=== PATIENT | female | born 1935 | race Caucasian/White ===

== ENCOUNTER → 2016-05-18 | Outpatient (CLI) | payer OTHER, MEDICARE | LOC: BHFA 11:00 | PROVIDERS: ATTEND Internal Medicine Cardiovascular Disease | DX: R06.2 Wheezing (principal) ==

== ENCOUNTER → 2016-07-25 | Outpatient (CLI) | payer OTHER, MEDICARE | LOC: BMCIMAGING 12:30 | PROVIDERS: ATTEND Family Medicine | DX: R05 Cough (principal); R06.02 Shortness of breath ==

== ENCOUNTER → 2016-09-05 | Outpatient (CLI) | payer OTHER, MEDICARE | LOC: BMCIMAGING 14:36 | PROVIDERS: ATTEND Internal Medicine | DX: J18.1 Lobar pneumonia, unspecified organism (principal); E03.9 Hypothyroidism, unspecified | CPT/HCPCS: 84481-90 ==

== ENCOUNTER → 2017-03-03 | Outpatient (CLI) | payer OTHER, MEDICARE | LOC: FIMAGING 09:26 | PROVIDERS: ATTEND Internal Medicine Hematology & Oncology | DX: Z12.31 Encounter for screening mammogram for malignant neoplasm of breast (principal); Z80.3 Family history of malignant neoplasm of breast | CPT/HCPCS: G0202 ==

== ENCOUNTER → 2017-10-03 | Outpatient (CLI) | payer OTHER, MEDICARE | LOC: BHFA 13:15 | PROVIDERS: ATTEND Internal Medicine Interventional Cardiology | DX: I27.20 Pulmonary hypertension, unspecified (principal) ==

== ENCOUNTER → 2017-10-19 | Outpatient (CLI) | payer OTHER, MEDICARE | LOC: BHFA 09:00 | PROVIDERS: ATTEND Internal Medicine Interventional Cardiology | DX: I27.20 Pulmonary hypertension, unspecified (principal); E78.5 Hyperlipidemia, unspecified ==

== ENCOUNTER → 2018-03-05 | Outpatient (CLI) | payer OTHER, MEDICARE | LOC: FIMAGING 10:58 | PROVIDERS: ATTEND Internal Medicine Hematology & Oncology | DX: Z12.31 Encounter for screening mammogram for malignant neoplasm of breast (principal); Z85.3 Personal history of malignant neoplasm of breast ==

== ENCOUNTER 2018-08-07 13:39 | Inpatient (IN) | payer OTHER, MEDICARE ==
[2018-08-07] MEDS ORDERED: ONDANSETRON 4 MG/2 ML VIAL IVP PRN (14:29)
[2018-08-07] MEDS ORDERED: ONDANSETRON DISINTEGRATING 4 MG TAB PO PRN (14:29)
[2018-08-07] MEDS ORDERED: ACETAMINOPHEN 325 MG TAB PO PRN (14:29)
[2018-08-07 15:09] LABS: PLATELET COUNT 148 10^3/uL (150-400)
[2018-08-07] MEDS ORDERED: NITROFURANTOIN MACROBID 100 MG CAP PO PRN (15:29)
--- NOTE | 2018-08-07 17:16 | ECHO ---
[email or web address] [address] [address] Main: [phone] Echocardiography Examination Transthoracic Name: OXANA CARLTON MR#: [id number] Study Date: 08/07/2018 Study Time: 03:47 PM Date of : 1935 Age: 82 year(s) Height: 162.6 cm (64 in.) Weight: 106.6 kg (235 lb.) BSA: 2.1 m2 Gender: Female Examination: Echo Contrast: Image Quality: Adequate Rhythm: Heart Rate: BP: / Indication: Assess MR Procedure Staff Referring Physician: Polo Coach: Esther Moore RDCS Reading Physician: Modesto Shepard MD Requesting Provider: Ordering Physician: Horacio Brewer MD Indication: Assess MR Measurements Chambers AV/MV Label Value Normal Value Label Value Normal Value LVOTd 1.9 cm (1.8cm - 2cm) AV PGmean 8 mmHg LVDd, 2D 4.7 cm (3.9cm - 5.3cm) AV Vmax 1.93 m/s LVDs, 2D 2.9 cm (2.1cm - 4cm) CRISTIAN (VTI) 1.5 cm2 IVSd, 2D 1.3 cm (0.6cm - 1.1cm) MV E Vmax 1.31 m/s LVPWd, 2D 1.3 cm MV A Vmax 0.85 m/s LVEF, 2D 68 % (54% - 74%) MV E/A 1.54 LVOT PGmean 2 mmHg MV E/E' lateral 20.7 LVOT Vmean 0.6 m/s MV E/E' septal 22.8 (0.45 - 1.25) EF lower range (%) 65 % MV E' septal 0.06 m/s EF upper range (%) 70 % MV VTI 40.7 cm LA Volume, BP 60 ml (22ml - 52ml) MVA D (continuity eq.) 1.8 cm2 LADs, 2D 4 cm (2.7cm - 3.8cm) MV PGmax 12 mmHg LAESV index, BP 28.6 ml/m2 MV PGmean 3 mmHg Additional Vessels MV My 3.2 cm Label Value Normal Value MR Vena Contracta 0.5 cm AoAsc 3.2 cm MR Reg. Volume 67 ml MR Reg. Fraction 20 % MR Vmax 5.41 m/s MR VTI 215 cm Patient: OXANA CARLTON Study Date: 08/07/2018 Page 1 of 3 03:47 PM MR (ERO) 0.31 cm2 MV E' lateral 0.06 m/s MR PISA Radius 0.9 cm MV E/E' mean 21.83 MR PISA Alias V. 32.9 cm/s MV E' mean 0.06 m/s TV/PV Label Value Normal Value RA Pressure 10 mmHg RVSP 68 mmHg TR Pmax 58 mmHg TR Vmax 3.81 m/s Conclusions (1) Left ventricular systolic ejection fraction was normal (65-70%) - mild LVH was noted (2) Bordeline RV dilation with normal systolic function (3) Mild biatrial dilation (4) Moderate MR with mild MAC. Regurgitant jet was posteriorly directed (5) Trileaflet aortic valve with mild/mod sclerosis, but no stenosis, and no insufficiency (6) Severe TR - RVSP was 65-70 mm Hg (7) Ascending aorta was 3.2 cm (8) No pericardial effusion (9) In comparison to prior echo from 10-03-17, increase in RVSP has been noted and similar mitral, aortic, and tricuspid valve pathology noted. Overall Conclusions: Exam done with pt flat (severe lipidemia in legs) Findings Left Ventricle: Diastolic dysfunction is present.. Left ventricle is normal in size. Normal global systolic left ventricular function. EF range is estimated at 65 % - 70 %. There is mild concentric left ventricular hypertrophy. There are no regional wall motion abnormalities. IVS: The septum is intact. Right Ventricle: Upper normal size right ventricle. Right ventricular wall thickness is normal. Right ventricular systolic function is normal. Left Atrium: The left atrium is mildly dilated. IAS: Normal appearing atrial septum. Right Atrium: The right atrium is mildly dilated. Mitral Valve: Moderate mitral regurgitation with a posteriorly directed jet.. No mitral valve stenosis. There is mild mitral annular calcification. Aortic Valve: No aortic valve regurgitation. Aortic leaflets exhibit mild to moderate calcification. The aortic valve is trileaflet. Tricuspid Valve: Patient: OXANA CARLTON Study Date: 08/07/2018 Page 2 of 3 03:47 PM Tricuspid valve leaflets are normal in appearance and function. Severe tricuspid regurgitation. No tricuspid valve stenosis. Right Ventricular systolic pressure is measured at 68 mmHg. Pulmonary artery pressure normal. Pulmonic Valve: Pulmonic leaflets exhibit normal cuspal separation. Mild pulmonic valve regurgitation is present. There is no pulmonic valve stenosis. Aorta: The aorta is normal. The ascending aorta measures 3.2 cm. Pericardium: No pericardial effusion. No pleural effusion present. Exam Details Procedure Ordered: Echo Procedure Status: Routine study Image Quality: Adequate Facility Location: Cardiac Echo 1 (No Signature Object) Patient: OXANA CARLTON Study Date: 08/07/2018 Page 3 of 3 03:47 PM [id number]
[2018-08-07] MEDS: CARVEDILOL 25 MG TAB PO SCH (17:21)
[2018-08-07] MEDS: FUROSEMIDE 40 MG/4 ML VIAL IVP SCH (17:21)
[2018-08-07] MEDS: ENOXAPARIN 30 MG/0.3 ML SYR SC SCH (20:22)
[2018-08-08] MEDS: FUROSEMIDE 40 MG/4 ML VIAL IVP SCH ×5 (06:19→23:47)
[2018-08-08] MEDS: LEVOTHYROXINE 125 MCG TAB PO SCH (06:19)
--- NOTE | 2018-08-08 09:08 | CPEKG ---
Test Reason : OPEN Blood Pressure : / mmHG Vent. Rate : 064 BPM Atrial Rate : 064 BPM P-R Int : 209 ms QRS Dur : 150 ms QT Int : 461 ms P-R-T Axes : 085 -77 019 degrees QTc Int : 476 ms Sinus rhythm RBBB and LAFB Probable left ventricular hypertrophy Confirmed by Alin Hoover ([id number]) on 08/08/2018 9:07:38 AM Referred By: BLAYNE HAN Confirmed By:Alin Hoover
[2018-08-08] MEDS: CARVEDILOL 25 MG TAB PO SCH ×2 (09:25→17:59)
[2018-08-08] MEDS: ANASTROZOLE 1 MG TAB PO SCH (09:27)
[2018-08-08] MEDS: POTASSIUM CL 20 MEQ TAB PO SCH (09:27)
[2018-08-08] MEDS: ALLOPURINOL 100 MG TAB PO SCH (09:27)
[2018-08-08] MEDS: ENOXAPARIN 30 MG/0.3 ML SYR SC SCH (09:28)
[2018-08-08] MEDS ORDERED: POLYETHYLENE GLYCOL 3350 17 GM PKT PO PRN (10:05)
[2018-08-08] MEDS ORDERED: PROTOCOL MAGNESIUM 1 DOSE IV PRN (10:24)
[2018-08-08] MEDS ORDERED: CARVEDILOL 25 MG TAB PO ONE (10:30)
[2018-08-08] MEDS ORDERED: MAGNESIUM SULF 1 GM/DEXTROSE 100 ML IV ONE (10:35)
--- NOTE | 2018-08-08 14:01 | ASMTCMCOM ---
CM Note CM Note Notes: Pts case discussed w/ RORY Nuñez. Pt is a 82 y/o man female admitted for CHF and pulmonary HTN. OT has cleared pt to d/c home with family. PT is still pending. Needs are TBD at this time. CM to follow. Plan: TBD Date Signed: 08/08/2018 02:00 PM Electronically Signed By:BOBBY Amaral
--- NOTE | 2018-08-08 16:08 | PDCARPN ---
Cardiology Progress Note Chief Complaint: Short of breath Assessment/Plan: Assessment: Polly Verde is a 82 y/o female with history of CHF and was evaluated in clinic by Dr Brewer determining she was fluid overloaded, and not responding well to oral diuretics. Recommendation for hospitalization for IV diuresis. She has tolerated it well and feels better today. She is easily SOB, but better with oxygen in place. Her legs were 3+ pitting edema on admit, today improved. She slept better last night. Today up in her room, and sitting in chair with legs elevated. Plan: Plan for continued IV diuresis today. Continue with I & O. Consider switching to oral Lasix tomorrow. She generally is feeling better today. 08/08/18 16:02 Subjective: My legs are not as tight and swollen today. I am breathing easier. Reviewed/Discussed With: family, multidisciplinary team Time Spent with Patient: greater than 25 minutes Time Spent with Patient: Greater than 25 minutes spent on this patients care, greater than 50% of time spent counseling, educating, and coordinating care regarding the above mentioned plan. Objective: Vital Signs (8 Hrs) Temp Pulse Pulse Resp BP BP BP 08/08/18 15:24 36.3 C 57 L 60 12 143/67 H 153/83 H 155/69 H 08/08/18 11:46 36.3 C 55 L 16 124/69 H 08/08/18 09:25 60 150/72 H Pulse Ox 08/08/18 15:24 96 08/08/18 11:46 94 08/08/18 09:25 Intake/Output (24 Hrs) 08/07/18 08/08/18 08/09/18 05:59 05:59 05:59 Intake Total 400 Output Total 4150 1500 Balance -3750 -1500 Intake: Oral (ml) 400 Output: Urine (ml) 4150 1500 Bedside Commode 1750 Toilet 2400 1500 Other: Weight 115.9 kg Number of Voids Bedside Commode 1 Toilet 4 3 Number of Stools Toilet 1 Result Diagrams: 08/07/18 14:45 08/08/18 04:18 - Physical Exam Constitutional: no apparent distress Cardiovascular: regular rate and rhythm, no murmurs, no rubs, no gallops Peripheral Pulses: 1+: dorsalis-pedis (R), dorsalis-pedis (L) Respiratory: no crackles, no wheezes Skin: warm, erythema, other (Edema) Neurologic: AAOx3 Psychiatric: cooperative, interactive ICD10 Worksheet Patient Problems: Problems Problem Status Onset Pulmonary arterial hypertension Acute CHF with left ventricular diastolic dysfunction, NYHA class 1 Acute
[2018-08-08] MEDS: SENNOSIDES/DOCUSATE SODIUM TAB PO SCH (21:19)
[2018-08-08] MEDS: ENOXAPARIN 40 MG/0.4 ML SYR SC SCH (21:19)
[2018-08-08] MEDS: ATORVASTATIN CALCIUM 10 MG TAB PO SCH (21:19)
[2018-08-09] MEDS: LEVOTHYROXINE 125 MCG TAB PO SCH (05:53)
[2018-08-09] MEDS: FUROSEMIDE 40 MG/4 ML VIAL IVP SCH ×3 (05:53→18:40)
[2018-08-09] MEDS ORDERED: MAGNESIUM SULF 1 GM/DEXTROSE 100 ML IV ONE (07:20)
[2018-08-09] MEDS: ANASTROZOLE 1 MG TAB PO SCH (08:13)
[2018-08-09] MEDS: ALLOPURINOL 100 MG TAB PO SCH (08:13)
[2018-08-09] MEDS: POTASSIUM CL 20 MEQ TAB PO SCH (08:14)
[2018-08-09] MEDS: ENOXAPARIN 40 MG/0.4 ML SYR SC SCH ×2 (08:17→21:05)
[2018-08-09] MEDS: SENNOSIDES/DOCUSATE SODIUM TAB PO SCH ×2 (08:28→21:05)
--- NOTE | 2018-08-09 09:21 | PDMN ---
Medical Necessity Medical necessity: Change to IP, as of 08/08/18, per MD & MCG M-190; los >2 mn for ongoing management of CHF exacerbation w/dyspnea (requiring 3L O2 to maintain sats >90%); requiring further monitoring & IV diuresis
[2018-08-09] MEDS: CARVEDILOL 25 MG TAB PO SCH ×3 (10:15→18:40)
--- NOTE | 2018-08-09 12:32 | PDCARPN ---
Cardiology Progress Note Assessment/Plan: Assessment: Polly Verde is a 82 y/o female with history of CHF and was evaluated in clinic by Dr Brewer determining she was fluid overloaded, and not responding well to oral diuretics. Recommendation for hospitalization for IV diuresis. She has tolerated it well and feels better today. She is easily SOB, but better with oxygen in place. Her legs were 3+ pitting edema on admit, today improved. She slept better last night. Today up in her room, and sitting in chair with legs elevated. Plan: Plan for continued IV diuresis today. Continue with I & O. Consider switching to oral Lasix tomorrow. She generally is feeling better today. 08/08/18 16:02 08/09/18 12:22 Tolerating the IV Lasix well. She lost 3 Kg in 24 hours. Her legs are less swollen today. She would continue to benefit with continued IV Lasix today. Her electrolytes are stable on the electrolyte protocol. She was concerned that her BP would drop too much with full dose Coreg 50 mg. Coreg 25 mg was given, and At noon her BP is elevated. Will have her take the additional Coreg 25 mg now. She likely will be ready for discharge in the morning. Subjective: I feel better today. Legs less swollen and I am breathing better. Reviewed/Discussed With: multidisciplinary team Time Spent with Patient: greater than 25 minutes Time Spent with Patient: Greater than 25 minutes spent on this patients care, greater than 50% of time spent counseling, educating, and coordinating care regarding the above mentioned plan. Objective: Vital Signs (8 Hrs) Temp Pulse Pulse Pulse Pulse Resp BP 08/09/18 12:13 36.3 C 58 L 154/84 H 08/09/18 09:46 58 L 135/65 H 08/09/18 08:28 111/59 L 08/09/18 08:06 37.4 C 62 18 118/45 L 08/09/18 06:21 61 64 67 BP BP BP Pulse Ox 08/09/18 12:13 97 08/09/18 09:46 08/09/18 08:28 08/09/18 08:06 95 08/09/18 06:21 147/58 H 143/68 H 132/57 H Intake/Output (24 Hrs) 08/08/18 08/09/18 08/10/18 05:59 05:59 05:59 Intake Total 400 1050 200 Output Total 4150 3000 650 Balance -2598 -5559 -817 Intake: Oral (ml) 400 1050 200 Output: Urine (ml) 4150 3000 650 Bedside Commode 1750 700 Toilet 2400 2300 650 Other: Weight 115.9 kg 112.446 kg Number of Voids Bedside Commode 1 2 Toilet 4 3 Number of Stools Toilet 1 Result Diagrams: 08/07/18 14:45 08/09/18 04:06 - Physical Exam Constitutional: no apparent distress Cardiovascular: no murmurs, no rubs, no gallops Respiratory: no crackles, no wheezes Skin: warm, other (edema lower legs ) Neurologic: AAOx3 Psychiatric: cooperative, interactive, not anxious ICD10 Worksheet Patient Problems: Problems Problem Status Onset Pulmonary arterial hypertension Acute CHF with left ventricular diastolic dysfunction, NYHA class 1 Acute
--- NOTE | 2018-08-09 15:47 | ASMTCMCOM ---
CM Note CM Note Notes: 08/09/2018 Case Management Note Reviewed chart. Discussed with RN. PT recommending Home and OT recommending outpatient rehab. Anticipating d/c in the next day or two per MD note. Case Management d/c poc: independent with follow up as directed. Case Management available if needs change. Date Signed: 08/09/2018 03:46 PM Electronically Signed By:Alba Vázquez RN
[2018-08-09] MEDS: ATORVASTATIN CALCIUM 10 MG TAB PO SCH (21:05)
[2018-08-10] MEDS: FUROSEMIDE 40 MG/4 ML VIAL IVP SCH ×3 (00:22→13:43)
[2018-08-10] MEDS: LEVOTHYROXINE 125 MCG TAB PO SCH (06:31)
[2018-08-10] MEDS ORDERED: MAGNESIUM SULF 1 GM/DEXTROSE 100 ML IV ONE (08:08)
[2018-08-10] MEDS: SENNOSIDES/DOCUSATE SODIUM TAB PO SCH ×2 (09:12→20:43)
[2018-08-10] MEDS: ANASTROZOLE 1 MG TAB PO SCH (09:13)
[2018-08-10] MEDS: ALLOPURINOL 100 MG TAB PO SCH (09:13)
[2018-08-10] MEDS: CARVEDILOL 25 MG TAB PO SCH ×2 (09:13→18:26)
[2018-08-10] MEDS: POTASSIUM CL 20 MEQ TAB PO SCH (09:13)
[2018-08-10] MEDS: ENOXAPARIN 40 MG/0.4 ML SYR SC SCH ×2 (09:14→20:39)
[2018-08-10] MEDS ORDERED: IOPAMIDOL (ISOVUE 370) 100 ML BTL IV ONE (14:24)
--- NOTE | 2018-08-10 15:57 | PDCARPN ---
Cardiology Progress Note Assessment/Plan: Assessment: Polly Verde is a 82 y/o female with history of CHF and was evaluated in clinic by Dr Brewer determining she was fluid overloaded, and not responding well to oral diuretics. Recommendation for hospitalization for IV diuresis. She has tolerated it well and feels better today. She is easily SOB, but better with oxygen in place. Her legs were 3+ pitting edema on admit, today improved. She slept better last night. Today up in her room, and sitting in chair with legs elevated. Plan: Plan for continued IV diuresis today. Continue with I & O. Consider switching to oral Lasix tomorrow. She generally is feeling better today. 08/08/18 16:02 08/09/18 12:22 Tolerating the IV Lasix well. She lost 3 Kg in 24 hours. Her legs are less swollen today. She would continue to benefit with continued IV Lasix today. Her electrolytes are stable on the electrolyte protocol. She was concerned that her BP would drop too much with full dose Coreg 50 mg. Coreg 25 mg was given, and At noon her BP is elevated. Will have her take the additional Coreg 25 mg now. She likely will be ready for discharge in the morning. 08/10/18 15:41 Acute Systolic - Diastolic CHF. Weight today stable at 112 kg. IV Lasix stopped. BNP 149. No SOB. Legs less swollen with no pitting leg edema. Pedal pitting edema 2+. Compression stockings in place. Will plan to resume Bumex Dr Brewer ordered pelvic and leg imaging. Watching for results. Subjective: I feel better today. Not SOB, and legs feel better. Reviewed/Discussed With: multidisciplinary team Time Spent with Patient: greater than 25 minutes Time Spent with Patient: Greater than 25 minutes spent on this patients care, greater than 50% of time spent counseling, educating, and coordinating care regarding the above mentioned plan. Objective: Vital Signs (8 Hrs) Temp Pulse Pulse Pulse Pulse Resp BP 08/10/18 11:05 97.8 C H 57 L 57 L 60 61 20 123/52 H BP BP BP Pulse Ox 08/10/18 11:05 123/52 H 108/54 L 109/70 96 Intake/Output (24 Hrs) 08/09/18 08/10/18 08/11/18 05:59 05:59 05:59 Intake Total 1050 2300 510 Output Total 3000 2150 Balance -1950 150 510 Intake: Oral (ml) 1050 2300 400 IV Infused (ml) 110 Magnesium Sulf 1 gm/ 110 Dextrose 100 ml @ 100 mls /hr IV ONCE ONE Rx#: [id number] Output: Urine (ml) 3000 2150 Bedside Commode 700 Toilet 2300 2150 Other: Weight 112.446 kg 112.9 kg Number of Voids Bedside Commode 2 Toilet 3 1 Number of Stools Toilet 1 Result Diagrams: 08/07/18 14:45 08/10/18 05:04 - Physical Exam Constitutional: no apparent distress Cardiovascular: regular rate and rhythm, no rubs, no gallops Respiratory: clear to auscultate bilat, no crackles, no wheezes Skin: warm, other (leg/feet edema. ) Neurologic: AAOx3 Psychiatric: cooperative, interactive ICD10 Worksheet Patient Problems: Problems Problem Status Onset Chronic Disease Mgmt/Transitional Care Acute Pulmonary arterial hypertension Acute CHF with left ventricular diastolic dysfunction, NYHA class 1 Acute
[2018-08-10] MEDS ORDERED: DIAZEPAM 5 MG TAB PO ONE (16:05)
[2018-08-10] MEDS: ATORVASTATIN CALCIUM 10 MG TAB PO SCH (20:39)
[2018-08-11] MEDS: LEVOTHYROXINE 125 MCG TAB PO SCH (03:59)
[2018-08-11] MEDS: ENOXAPARIN 40 MG/0.4 ML SYR SC SCH (10:04)
[2018-08-11] MEDS: SENNOSIDES/DOCUSATE SODIUM TAB PO SCH (10:04)
[2018-08-11] MEDS: CARVEDILOL 25 MG TAB PO SCH (10:05)
[2018-08-11] MEDS: POTASSIUM CL 20 MEQ TAB PO SCH (10:05)
[2018-08-11] MEDS: ALLOPURINOL 100 MG TAB PO SCH (10:06)
[2018-08-11] MEDS: ANASTROZOLE 1 MG TAB PO SCH (10:06)
--- NOTE | 2018-08-11 10:14 | PDDCSUM ---
Discharge Summary Discharge Summary: Admission date: 08/07/2018 Discharge date: 08/11/2018 Admission diagnosis decompensated diastolic heart failure. Discharge diagnosis decompensated diastolic heart failure now resolved, pulmonary hypertension, systemic hypertension, valvular heart disease, obesity, lower extremity edema. Follow-up [facility] 1 week with basic metabolic panel. Procedures: Echocardiogram, CT venogram Hospital course: 82-year-old female admitted from the office electively for volume overload in progressive shortness of breath consistent with decompensated diastolic heart failure. On admission she was given aggressive IV diuresis with marked improvement in clinical symptoms. Her initial brain atretic peptide was 513 this fell. She was diuresed still her creatinine increased. She felt markedly improved with resolution of significant shortness of breath with exertion, marked improvement lower extremity swelling. CT venogram was performed to exclude significant obstructive venous disease. Results are currently pending. Her vital signs remained stable with a creatinine at 1.0. Potassium was stable. Brain atretic peptide fell well below 400. On examination today she continues to have 3+ edema below her knees. Significant skin changes are noted without active ulceration. Her chest was otherwise clear. Cardiac exam revealed a regular rhythm. Her echocardiogram showed no significant change in moderate mitral regurgitation, pulmonary artery pressure was estimated at 50 mm of mercury. Will plan to restart her select enough ill as an outpatient. Continue her outpatient medications as described in her form 17. Clinical follow-up in 1 week with a brain atretic peptide, basic metabolic panel. Questions were answered. She is up ambulating and ready for discharge.
[2018-08-11 12:35] VITALS: BP 112/50
--- NOTE | 2018-08-11 12:37 | ASMTLACE ---
LACE Length of stay for Answers: 2 days current admission Acuity / Level of Answers: Yes Care: Did the patient have an inpatient admission? Comorbidities - select Answers: Any tumor (including all that apply lymphoma or leukemia) Other Notes: Hypothyroid # of Emergency department Answers: 0 visits in the last 6 months Score: 8 Date Signed: 08/11/2018 12:37 PM Electronically Signed By:Alba Vázquez RN
--- NOTE | 2018-08-11 12:39 | ASMTDCNOTE ---
Case Management Discharge Discharge Order Complete? Answers: Yes Patient to Obtain Answers: via Family Medications Transportation Arranged Answers: Family/Friends Discharge Comments Notes: 08/11/2018 Case Management Note IM signed. Pt to discharge home independent with follow up as directed. Date Signed: 08/11/2018 12:39 PM Electronically Signed By:Alba Vázquez RN
== END 2018-08-11 13:40 | disposition home or self-care (01) | DRG 293 ==
LOC: F2W 14:01 → OBSVTOIN 08-08 16:16
PROVIDERS: ADMIT Internal Medicine Interventional Cardiology; ATTEND Internal Medicine Interventional Cardiology
DX: I11.0 Hypertensive heart disease with heart failure (principal); I50.33 Acute on chronic diastolic (congestive) heart failure; I27.29 Other secondary pulmonary hypertension; E66.01 Morbid (severe) obesity due to excess calories; I34.0 Nonrheumatic mitral (valve) insufficiency; G47.30 Sleep apnea, unspecified; J45.909 Unspecified asthma, uncomplicated; E78.5 Hyperlipidemia, unspecified; E03.9 Hypothyroidism, unspecified; Z85.3 Personal history of malignant neoplasm of breast
CPT/HCPCS: 97162-GP; 97166-GO; 97535-GO; G0378; G0379; J1650; J1940; J3475; Q9967

== ENCOUNTER → 2018-09-06 | Outpatient (CLI) | payer OTHER, MEDICARE | LOC: FIMAGING 09:12 | PROVIDERS: ATTEND Radiology Diagnostic Radiology | DX: I83.93 Asymptomatic varicose veins of bilateral lower extremities (principal); I87.2 Venous insufficiency (chronic) (peripheral) ==

== ENCOUNTER 2018-10-09 11:26 | Day surgery (SDC) | payer OTHER, MEDICARE | END 2018-10-09 15:11 | disposition home or self-care (01) | LOC: FIMAGING 11:26 ==

== ENCOUNTER → 2018-10-26 | Outpatient (CLI) | payer OTHER, MEDICARE | LOC: FIMAGING 16:35 ==